=== PATIENT | male | born 1995 | race Hispanic/Latino ===

== ENCOUNTER 2020-10-02 12:00 | Emergency (ER) | payer OTHER ==
[2020-10-02 13:04] LABS: #Eosinphils 0.2 10x3/uL (0.0-0.5); #Monocytes 0.4 10x3/uL (0.0-1.1); %Basophils 0.3 % (0.0-2.0); %Eosinophils 3.9 % (0.0-6.0); %Lymphocytes 21.5 % (18.0-47.0); %Monocytes 6.6 % (0.0-10.0); Hemoglobin 16.8 g/dL (13.5-17.5); Mean Corpuscular HGB CONC 35.5 g/dL (32.0-36.0); Mean Corpuscular Hemoglobin 30.4 pg (27.0-33.0); Mean Corpuscular Volume 85.5 fl (81.2-95.1); Mean Platelet Volume 10.6 fl (7.4-10.4); Platelet Count 231 10x3/uL (150-450); RBC Distribution Width 12.8 % (11.5-14.5); Red Blood Cell (RBC) Count 5.53 10x6/uL (4.32-5.72); White Blood Cell (WBC) Count 5.9 10x3/uL (3.5-10.5)
[2020-10-02 13:05] LABS: Bilirubin Neg (Negative); Blood, Urine Negative (Negative); Clarity Clear (Clear); Glucose, Urine (Dipstick) Normal (Negative); Ketone, Urine Negative (Negative); Leukocyte Negative (Negative); Nitrite Negative (Negative); Protein, Urine (Dipstick) 100 mg/dl (Neg-Trace); Specific Gravity, Urine 1.025 (1.002-1.036); Urobilinogen Normal mg/dL (Less than 2)
[2020-10-02 13:13] LABS: ALT (SGPT) 181 U/L (8-55); AST (SGOT) 73 U/L (5-34); Albumin 4.8 g/dL (3.5-5.0); Alkaline Phosphatase 65 U/L (40-110); Anion Gap 15 mmol/L (10-20); BUN (Urea Nitrogen) 12 mg/dL (8.9-20.6); Bilirubin, Total 2.4 mg/dL (0.2-1.2); Calc. Creatinine Clearance 0 mL/min (70-130); Calcium 9.7 mg/dL (7.8-10.44); Carbon Dioxide 23 mmol/L (22-29); Chloride 105 mmol/L (98-107); Globulin 3.9 g/dL (2.4-3.5); Glucose 106 mg/dL (70-105); Lipase 20 U/L (8-78); Potassium 3.9 mmol/L (3.5-5.1); Protein, Total 8.7 g/dL (6.0-8.3); Sodium 139 mmol/L (136-145)
[2020-10-02 13:27] LABS: RBC/HPF 0-3 HPF (0-3); Squamous Epithelial 0-3 HPF (0-3); WBC/HPF 0-3 HPF (0-3)
[2020-10-02 13:32] LABS: Bacteria/HPF 1+ HPF (None Seen)
[2020-10-02 13:33] LABS: Mucous/LPF Rare LPF (<2+)
[2020-10-02] MEDS ORDERED: Ketorolac Tromethamine 30 MG/ML VIAL ONE (14:03)
[2020-10-02] MEDS ORDERED: Ondansetron PF 4 MG/2 ML Vial ONE (14:03)
== END 2020-10-02 15:35 | disposition home or self-care (01) ==
LOC: CSHERS 12:00
DX: R11.2 Nausea with vomiting, unspecified (principal); R10.31 Right lower quadrant pain; R19.7 Diarrhea, unspecified; J45.909 Unspecified asthma, uncomplicated; K21.9 Gastro-esophageal reflux disease without esophagitis; I10 Essential (primary) hypertension; Z86.73 Personal history of transient ischemic attack (TIA), and cerebral infarction without residual deficits
CPT/HCPCS: 74177; 80053; 81003; 81015; 83690; 85025; 96374; 96375; J1885; J2405

== ENCOUNTER 2020-10-24 19:26 | Emergency (ER) | payer OTHER, SELFPAY | END 2020-10-24 20:07 | disposition home or self-care (01) | LOC: CSHERS 19:26 | DX: G89.29 Other chronic pain (principal); R10.9 Unspecified abdominal pain; J45.909 Unspecified asthma, uncomplicated; K21.9 Gastro-esophageal reflux disease without esophagitis; I10 Essential (primary) hypertension; Z79.899 Other long term (current) drug therapy | CPT/HCPCS: 99283 ==

== ENCOUNTER 2021-04-24 17:32 | Emergency (ER) | payer SELFPAY ==
[2021-04-24] MEDS ORDERED: Ondansetron PF 4 MG/2 ML Vial ONE (19:01)
[2021-04-24] MEDS ORDERED: Ketorolac Tromethamine 30 MG/ML VIAL ONE (19:01)
[2021-04-24 19:27] LABS: #Basophils 0.1 10x3/uL (0.0-0.2); #Eosinphils 0.1 10x3/uL (0.0-0.5); #Monocytes 0.5 10x3/uL (0.0-1.1); #Neutrophils 4.5 10x3/uL (1.5-8.4); %Basophils 0.9 % (0.0-2.0); %Eosinophils 0.9 % (0.0-6.0); %Lymphocytes 26.3 % (18.0-47.0); %Monocytes 6.9 % (0.0-10.0); %Neutrophils 64.6 % (40.0-75.0); Hemoglobin 17.5 g/dL (13.5-17.5); Mean Corpuscular HGB CONC 35.8 g/dL (32.0-36.0); Mean Corpuscular Hemoglobin 30.3 pg (27.0-33.0); Mean Corpuscular Volume 84.6 fl (81.2-95.1); Mean Platelet Volume 10.2 fl (7.4-10.4); Platelet Count 260 10x3/uL (150-450); Red Blood Cell (RBC) Count 5.78 10x6/uL (4.32-5.72)
[2021-04-24 19:40] LABS: ALT (SGPT) 145 U/L (8-55); AST (SGOT) 56 U/L (5-34); Alkaline Phosphatase 45 U/L (40-110); Anion Gap 11 mmol/L (10-20); BUN (Urea Nitrogen) 13 mg/dL (8.9-20.6); Bilirubin, Total 1.9 mg/dL (0.2-1.2); Calc. Creatinine Clearance 0 mL/min (70-130); Calcium 8.9 mg/dL (7.8-10.44); Carbon Dioxide 25 mmol/L (22-29); Chloride 108 mmol/L (98-107); Globulin 2.3 g/dL (2.4-3.5); Glucose 109 mg/dL (70-105); Lipase 28 U/L (8-78); Potassium 3.8 mmol/L (3.5-5.1); Protein, Total 6.3 g/dL (6.0-8.3); Sodium 140 mmol/L (136-145)
[2021-04-24 19:45] LABS: Bilirubin Neg (Negative); Blood, Urine Negative (Negative); Clarity Slightly Cloudy (Clear); Glucose, Urine (Dipstick) Normal (Negative); Ketone, Urine Negative (Negative); Leukocyte Negative (Negative); Nitrite Negative (Negative); Protein, Urine (Dipstick) 30 mg/dl (Neg-Trace)
[2021-04-24 20:25] LABS: Bacteria/HPF 2+ HPF (None Seen); Mucous/LPF 3+ LPF (<2+); RBC/HPF 0-3 HPF (0-3); Squamous Epithelial 0-3 HPF (0-3); WBC/HPF 0-3 HPF (0-3)
== END 2021-04-24 21:46 | disposition home or self-care (01) ==
LOC: CSHERS 17:32
DX: H66.91 Otitis media, unspecified, right ear (principal); R10.9 Unspecified abdominal pain; J45.909 Unspecified asthma, uncomplicated; K21.9 Gastro-esophageal reflux disease without esophagitis; F17.210 Nicotine dependence, cigarettes, uncomplicated
CPT/HCPCS: 74177; 80053; 81003; 81015; 83690; 85025; 96374; 96375; J1885; J2405

== ENCOUNTER 2021-04-26 20:40 | Emergency (ER) | payer SELFPAY ==
[2021-04-26] MEDS ORDERED: Ketorolac Tromethamine 30 MG/ML VIAL ONE (23:40)
[2021-04-26] MEDS ORDERED: Ondansetron PF 4 MG/2 ML Vial ONE (23:40)
[2021-04-27 00:31] LABS: #Eosinphils 0.1 10x3/uL (0.0-0.5); #Monocytes 0.4 10x3/uL (0.0-1.1); #Neutrophils 3.1 10x3/uL (1.5-8.4); %Basophils 0.6 % (0.0-2.0); %Eosinophils 1.1 % (0.0-6.0); %Lymphocytes 41.3 % (18.0-47.0); %Monocytes 6.8 % (0.0-10.0); %Neutrophils 49.7 % (40.0-75.0); Hemoglobin 15.8 g/dL (13.5-17.5); Mean Corpuscular HGB CONC 35.2 g/dL (32.0-36.0); Mean Corpuscular Hemoglobin 30.2 pg (27.0-33.0); Mean Corpuscular Volume 85.9 fl (81.2-95.1); Mean Platelet Volume 10.2 fl (7.4-10.4); Platelet Count 259 10x3/uL (150-450); RBC Distribution Width 12.5 % (11.5-14.5); Red Blood Cell (RBC) Count 5.23 10x6/uL (4.32-5.72); White Blood Cell (WBC) Count 6.3 10x3/uL (3.5-10.5)
[2021-04-27 00:41] LABS: ALT (SGPT) 146 U/L (8-55); AST (SGOT) 54 U/L (5-34); Albumin 4.3 g/dL (3.5-5.0); Alkaline Phosphatase 45 U/L (40-110); Anion Gap 13 mmol/L (10-20); BUN (Urea Nitrogen) 11 mg/dL (8.9-20.6); Bilirubin, Total 2.3 mg/dL (0.2-1.2); Calc. Creatinine Clearance 0 mL/min (70-130); Calcium 9.2 mg/dL (7.8-10.44); Carbon Dioxide 25 mmol/L (22-29); Chloride 108 mmol/L (98-107); Globulin 2.2 g/dL (2.4-3.5); Glucose 84 mg/dL (70-105); Lipase 20 U/L (8-78); Potassium 4.2 mmol/L (3.5-5.1); Protein, Total 6.5 g/dL (6.0-8.3); Sodium 142 mmol/L (136-145)
[2021-04-27 01:19] LABS: Bilirubin 1+ (Negative); Blood, Urine Negative (Negative); Clarity Slightly Cloudy (Clear); Glucose, Urine (Dipstick) Normal (Negative); Ketone, Urine 50 mg/dL (Negative); Leukocyte 25 (Negative); Nitrite Negative (Negative); Protein, Urine (Dipstick) 30 mg/dl (Neg-Trace)
[2021-04-27 02:07] LABS: RBC/HPF 0-3 HPF (0-3)
[2021-04-27 02:08] LABS: Bacteria/HPF 2+ HPF (None Seen); Calcium Oxalate Crystals Rare HPF (None Seen); Mucous/LPF 4+ LPF (<2+)
== END 2021-04-27 01:56 | disposition home or self-care (01) ==
LOC: CSHERS 20:40
DX: R10.84 Generalized abdominal pain (principal); R11.0 Nausea; K21.9 Gastro-esophageal reflux disease without esophagitis; F17.210 Nicotine dependence, cigarettes, uncomplicated; J45.909 Unspecified asthma, uncomplicated
CPT/HCPCS: 80053; 81003; 81015; 83605; 83690; 85025; 87086; 96374; 96375; J1885; J2405

== ENCOUNTER 2021-07-22 21:48 | Emergency (ER) | payer OTHER, SELFPAY ==
[2021-07-22] MEDS ORDERED: Meclizine HCl 25 MG TAB ONE (22:16)
[2021-07-22] MEDS ORDERED: Famotidine 20 MG TAB ONE (22:20)
== END 2021-07-22 22:19 | disposition home or self-care (01) ==
LOC: CSHERS 21:48
DX: R10.9 Unspecified abdominal pain (principal); R42 Dizziness and giddiness
CPT/HCPCS: 99283

== ENCOUNTER 2022-09-21 23:13 | Emergency (ER) | payer SELFPAY ==
[2022-09-21] MEDS ORDERED: Ketorolac Tromethamine 30 MG/ML VIAL ONE (23:49)
[2022-09-21] MEDS ORDERED: Mag-Al Plus 1200 MG/1200 MG/120 MG/30 ML UDCUP ONE (23:49)
== END 2022-09-22 00:07 | disposition home or self-care (01) ==
LOC: CSHERS 23:13
DX: K21.9 Gastro-esophageal reflux disease without esophagitis (principal); R51.9 Headache, unspecified; Z76.0 Encounter for issue of repeat prescription; Z87.891 Personal history of nicotine dependence
CPT/HCPCS: 93005; 96372; J1885